=== PATIENT | female | born 2000 | race African-American/Black ===

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

== ENCOUNTER 2019-02-19 16:18 | Emergency (ER) | payer MEDICAID, OTHER ==
[~2019-02-19] VITALS: Ht 165.1 cm; Wt 81.8 kg
[2019-02-19 17:48] LABS: BASOPHILS % (AUTO) 0.4 % (0-1); EOSINOPHILS # (AUTO) 0.2 X10'3 (0-0.9); EOSINOPHILS % (AUTO) 2.2 % (0-6); HEMOGLOBIN 11.5 g/dl (12.0-16.0); LYMPHOCYTES # (AUTO) 2.1 X10'3 (1.1-4.8); LYMPHOCYTES % (AUTO) 25.8 % (21-51); MEAN CORPUSCULAR HEMOGLOBIN 28.7 PG (27.0-31.0); MEAN CORPUSCULAR HGB CONC 32.9 g/dL (33.0-36.5); MEAN CORPUSCULAR VOLUME 87.3 FL (78-98); MEAN PLATELET VOLUME 6.8 FL (7.4-10.4); MONOCYTES # (AUTO) 0.5 X10'3 (0-0.9); MONOCYTES % (AUTO) 6.5 % (2-12); NEUTROPHILS # (AUTO) 5.3 X10'3 (1.8-7.7); NEUTROPHILS % (AUTO) 65.1 % (42-75); PLATELET COUNT 408 X10'3 (140-440); RED BLOOD COUNT 4.01 X10'6 (4.20-5.60); RED CELL DISTRIBUTION WIDTH 13.7 % (11.5-14.5); WHITE BLOOD COUNT 8.1 X10'3 (4.5-11.0)
[2019-02-19 18:11] LABS: ALANINE AMINOTRANSFERASE 16 U/L (12-78); ALBUMIN 3.8 G/DL (3.4-5.0); ALBUMIN/GLOBULIN RATIO 0.9 (1.1-1.5); ALKALINE PHOSPHATASE 79 IU/L (20-180); ANION GAP 9 (8-16); ASPARTATE AMINO TRANSFERASE 11 U/L (10-37); BILIRUBIN,TOTAL 0.3 MG/DL (0.1-1.0); BLOOD UREA NITROGEN 10 MG/DL (7-18); BUN/CREATININE RATIO 12.2 (6.6-38.0); CALCIUM 8.8 MG/DL (8.5-10.1); CHLORIDE 107 MMOL/L (99-107); CREATININE 0.82 MG/DL (0.40-0.90); GLUCOSE 68 MG/DL (70-104); POTASSIUM 3.7 MMOL/L (3.5-5.1); SODIUM 141 MMOL/L (135-145); TOTAL CARBON DIOXIDE 24.6 MMOL/L (24-32); eGFR > 90 ML/MIN
[2019-02-19 18:16] VITALS: BP 115/58
== END 2019-02-19 18:40 | disposition home or self-care (01) ==
LOC: ER 16:19
DX: R42 Dizziness and giddiness (principal); R07.89 Other chest pain; R00.2 Palpitations; G43.909 Migraine, unspecified, not intractable, without status migrainosus; J45.909 Unspecified asthma, uncomplicated; Z88.0 Allergy status to penicillin; Z88.1 Allergy status to other antibiotic agents
CPT/HCPCS: 36415; 80053; 82948; 85025; 93005; 99284

== ENCOUNTER 2019-03-09 14:41 | Emergency (ER) | payer MEDICAID, OTHER ==
[~2019-03-09] VITALS: Ht 165.1 cm; Wt 80.0 kg
[2019-03-09 15:00] VITALS: BP 126/61
[2019-03-09] MEDS ORDERED: NAPR-56 PO (15:44)
== END 2019-03-09 15:55 | disposition home or self-care (01) ==
LOC: ER 14:41
DX: M79.672 Pain in left foot (principal); G43.909 Migraine, unspecified, not intractable, without status migrainosus; J45.909 Unspecified asthma, uncomplicated; F10.99 Alcohol use, unspecified with unspecified alcohol-induced disorder; Z86.2 Personal history of diseases of the blood and blood-forming organs and certain disorders involving the immune mechanism; Z88.0 Allergy status to penicillin; Z88.1 Allergy status to other antibiotic agents; Z79.899 Other long term (current) drug therapy; Y90.9 Presence of alcohol in blood, level not specified
CPT/HCPCS: 73610; 73630; 99283

== ENCOUNTER 2019-03-16 16:16 | Emergency (ER) | payer MEDICAID, OTHER ==
[~2019-03-16] VITALS: Ht 165.1 cm; Wt 84.1 kg
[~2019-03-16 16:16] MED LIST changes: +NAPR-56 PO
[2019-03-16 16:38] VITALS: BP 126/75
--- NOTE | 2019-03-16 17:35 | NUR ---
PT GIVEN A WORK NOTE AND TOLD TO REST HER FOOT AND MAY F/U WITH UTILITY DRIVER.
== END 2019-03-16 17:43 | disposition home or self-care (01) ==
LOC: ER 16:16
DX: M79.672 Pain in left foot (principal); G43.909 Migraine, unspecified, not intractable, without status migrainosus; J45.909 Unspecified asthma, uncomplicated; D64.9 Anemia, unspecified; Z88.0 Allergy status to penicillin; Z88.1 Allergy status to other antibiotic agents; Z79.2 Long term (current) use of antibiotics; Z79.899 Other long term (current) drug therapy
CPT/HCPCS: 73630; 99283

== ENCOUNTER 2019-03-25 19:28 | Emergency (ER) | payer MEDICAID, OTHER ==
[~2019-03-25] VITALS: Ht 165.1 cm; Wt 83.6 kg
[2019-03-25 19:40] VITALS: BP 123/82
[2019-03-25] MEDS ORDERED: LIDOcaine 5% patch TP STA (21:18)
[2019-03-25] MEDS ORDERED: ketorolac tromethamine 15mg/ml inj. IM ONE (21:20)
== END 2019-03-25 21:47 | disposition home or self-care (01) ==
LOC: ER 19:28
DX: S86.812A Strain of other muscle(s) and tendon(s) at lower leg level, left leg, initial encounter (principal); S46.811A Strain of other muscles, fascia and tendons at shoulder and upper arm level, right arm, initial encounter; S00.83XA Contusion of other part of head, initial encounter; G43.909 Migraine, unspecified, not intractable, without status migrainosus; J45.909 Unspecified asthma, uncomplicated; Z88.0 Allergy status to penicillin; Z88.1 Allergy status to other antibiotic agents; Z79.2 Long term (current) use of antibiotics; Z79.899 Other long term (current) drug therapy; V43.62XA Car passenger injured in collision with other type car in traffic accident, initial encounter; Y93.89 Activity, other specified; Y92.488 Other paved roadways as the place of occurrence of the external cause; Y99.8 Other external cause status
CPT/HCPCS: 96372; 99283; J1885

== ENCOUNTER 2019-11-24 12:29 | Emergency (ER) | payer MEDICAID ==
[~2019-11-24] VITALS: Ht 165.1 cm; Wt 89.0 kg
[~2019-11-24 12:29] MED LIST changes: -NAPR-56 PO
[2019-11-24] MEDS ORDERED: ALBU18HF2 INH (14:34)
[2019-11-24 14:46] VITALS: BP 114/87
== END 2019-11-24 14:44 | disposition home or self-care (01) ==
LOC: ER 12:30
DX: T78.40XA Allergy, unspecified, initial encounter (principal); G43.909 Migraine, unspecified, not intractable, without status migrainosus; J45.909 Unspecified asthma, uncomplicated; F17.200 Nicotine dependence, unspecified, uncomplicated; Z76.0 Encounter for issue of repeat prescription; Z86.2 Personal history of diseases of the blood and blood-forming organs and certain disorders involving the immune mechanism; Z72.89 Other problems related to lifestyle; Z88.0 Allergy status to penicillin; Z88.1 Allergy status to other antibiotic agents; Z79.899 Other long term (current) drug therapy; X58.XXXA Exposure to other specified factors, initial encounter
CPT/HCPCS: 99283

== ENCOUNTER 2020-01-18 17:39 | Emergency (ER) | payer MEDICAID ==
[~2020-01-18] VITALS: Ht 165.1 cm; Wt 84.1 kg
[~2020-01-18 17:39] MED LIST changes: +ALBU18HF2 INH
[2020-01-18 18:00] VITALS: BP 137/94
[2020-01-18] MEDS ORDERED: ketorolac tromethamine 15mg/ml inj. IM ONE (19:40)
== END 2020-01-18 20:09 | disposition home or self-care (01) ==
LOC: ER 17:40
DX: S16.1XXA Strain of muscle, fascia and tendon at neck level, initial encounter (principal); J45.909 Unspecified asthma, uncomplicated; Z88.0 Allergy status to penicillin; Z88.1 Allergy status to other antibiotic agents; Z79.2 Long term (current) use of antibiotics; Z79.899 Other long term (current) drug therapy; V87.8XXA Person injured in other specified noncollision transport accidents involving motor vehicle (traffic), initial encounter; Y93.89 Activity, other specified; Y92.410 Unspecified street and highway as the place of occurrence of the external cause; Y99.8 Other external cause status
CPT/HCPCS: 72125; 96372; 99284; J1885

== ENCOUNTER 2020-11-10 12:55 | Emergency (ER) | payer MEDICAID ==
[~2020-11-10] VITALS: Ht 165.1 cm; Wt 92.4 kg
[2020-11-10 13:03] VITALS: BP 129/69
[2020-11-10 16:42] LABS: CLARITY,URINE CLOUDY (Clear); COLOR,URINE YELLOW (Yellow); GLUCOSE, URINE NEGATIVE (Neg); KETONES,URINE TRACE mg/dl (Neg); LEUKOCYTE ESTERASE ,URINE NEGATIVE (Neg); NITRITES, URINE POSITIVE (Neg); OCCULT BLOOD,URINE SMALL (Neg); PREOP URINE HCG NEGATIVE (NEGATIVE); PROTEIN,URINE NEGATIVE (Neg); UROBILINOGEN,URINE 0.2 E.U/dL (0.2-1.0)
[2020-11-10 16:43] LABS: UA COLLECTION TYPE CLN CATCH MIDSTREAM
[2020-11-10 16:47] LABS: BACTERIA,URINE 4+ /HPF (Neg); MUCUS STRANDS NONE SEEN /LPF (Neg); SQUAMOUS EPITHELIAL CELL,UR MODERATE /LPF (FEW)
[2020-11-10] MEDS ORDERED: CEPH-585 PO (17:04)
== END 2020-11-10 17:11 | disposition home or self-care (01) ==
LOC: ER 12:55
DX: N83.202 Unspecified ovarian cyst, left side (principal); R10.2 Pelvic and perineal pain; N39.0 Urinary tract infection, site not specified; G43.909 Migraine, unspecified, not intractable, without status migrainosus; J45.909 Unspecified asthma, uncomplicated; Z86.2 Personal history of diseases of the blood and blood-forming organs and certain disorders involving the immune mechanism; Z72.89 Other problems related to lifestyle; Z88.0 Allergy status to penicillin; Z88.1 Allergy status to other antibiotic agents; Z79.2 Long term (current) use of antibiotics; Z79.899 Other long term (current) drug therapy
CPT/HCPCS: 76856; 81001; 81025; 93976; 99284

== ENCOUNTER 2021-01-02 14:37 | Emergency (ER) | payer MEDICAID ==
[~2021-01-02] VITALS: Ht 165.1 cm; Wt 81.0 kg
[~2021-01-02 14:37] MED LIST changes: +CEPH-585 PO
[2021-01-02 14:42] VITALS: BP 119/72
== END 2021-01-02 15:49 | disposition home or self-care (01) ==
LOC: ER 14:37
DX: M79.675 Pain in left toe(s) (principal); R26.9 Unspecified abnormalities of gait and mobility; G43.909 Migraine, unspecified, not intractable, without status migrainosus; J45.909 Unspecified asthma, uncomplicated; F12.90 Cannabis use, unspecified, uncomplicated; Z86.2 Personal history of diseases of the blood and blood-forming organs and certain disorders involving the immune mechanism; Z87.81 Personal history of (healed) traumatic fracture; Z72.89 Other problems related to lifestyle; Z88.0 Allergy status to penicillin; Z88.1 Allergy status to other antibiotic agents; Z79.2 Long term (current) use of antibiotics; Z79.899 Other long term (current) drug therapy
CPT/HCPCS: 73630; 99283

== ENCOUNTER 2023-04-09 13:07 | Emergency (ER) | payer MEDICAID ==
[~2023-04-09] VITALS: Ht 165.1 cm; Wt 105.0 kg
[~2023-04-09 13:07] MED LIST changes: -CEPH-585 PO
[2023-04-09 13:31] VITALS: RESP 18
[2023-04-09 17:12] VITALS: BP 129/81; PULSE 77; TEMP 97.5; O2SAT 100
== END 2023-04-09 22:17 | disposition left against medical advice (07) ==
LOC: ER 13:08
DX: R51.9 Headache, unspecified (principal); Z53.21 Procedure and treatment not carried out due to patient leaving prior to being seen by health care provider
CPT/HCPCS: 99281

== ENCOUNTER 2023-07-01 05:48 | Outpatient (CLI) | payer MEDICAID ==
[2023-07-01] VITALS (20 sets, daily range): BP systolic 102–131; BP diastolic 55–95; PULSE 65–111
== END 2023-07-01 23:59 | disposition home or self-care (01) ==
LOC: CARD DIAG 05:48
PROVIDERS: ATTEND Internal Medicine Interventional Cardiology
DX: R00.0 Tachycardia, unspecified (principal); R00.2 Palpitations; R06.02 Shortness of breath; R07.89 Other chest pain
CPT/HCPCS: 93660

== ENCOUNTER 2024-02-01 20:23 | Emergency (ER) | payer OTHER, MEDICAID ==
[~2024-02-01] VITALS: Ht 165.1 cm; Wt 98.1 kg
[~2024-02-01 20:23] MED LIST changes: +ONDA-243 PO; -ONDA4TAB12 PO
[2024-02-01 21:41] VITALS: BP 130/82; PULSE 75; RESP 16; TEMP 98; O2SAT 100
[2024-02-01 21:47] LABS: HIV ANTIBODY 1&2 RAPID NON-REACTIVE (Neg)
== END 2024-02-01 21:42 | disposition home or self-care (01) ==
LOC: ER 20:23
DX: Z77.21 Contact with and (suspected) exposure to potentially hazardous body fluids (principal); R04.0 Epistaxis; G43.909 Migraine, unspecified, not intractable, without status migrainosus; J45.909 Unspecified asthma, uncomplicated; F31.9 Bipolar disorder, unspecified; F12.90 Cannabis use, unspecified, uncomplicated; Z88.0 Allergy status to penicillin; Z88.1 Allergy status to other antibiotic agents; Z79.899 Other long term (current) drug therapy; Z79.2 Long term (current) use of antibiotics
CPT/HCPCS: 36415; 86703; 86704; 86705; 86708; 86803; 87522; 99283

== ENCOUNTER 2024-09-24 18:45 | Emergency (ER) | payer MEDICAID, OTHER ==
[~2024-09-24] VITALS: Ht 165.1 cm; Wt 92.2 kg
[2024-09-24 18:56] VITALS: BP 117/76; PULSE 68; RESP 16; O2SAT 100
[2024-09-24 20:30] VITALS: TEMP 98.1
== END 2024-09-24 20:38 | disposition home or self-care (01) ==
LOC: ER 18:46
DX: S00.83XA Contusion of other part of head, initial encounter (principal); J45.909 Unspecified asthma, uncomplicated; F12.90 Cannabis use, unspecified, uncomplicated; G43.909 Migraine, unspecified, not intractable, without status migrainosus; D64.9 Anemia, unspecified; F31.9 Bipolar disorder, unspecified; Z88.0 Allergy status to penicillin; Z88.1 Allergy status to other antibiotic agents; Z79.899 Other long term (current) drug therapy; Z72.89 Other problems related to lifestyle; W22.8XXA Striking against or struck by other objects, initial encounter; Y93.89 Activity, other specified; Y92.89 Other specified places as the place of occurrence of the external cause; Y99.8 Other external cause status
CPT/HCPCS: 70140; 99283

== ENCOUNTER 2024-10-13 15:46 | Emergency (ER) | payer MEDICAID, OTHER ==
[~2024-10-13] VITALS: Ht 165.1 cm; Wt 91.3 kg
[2024-10-13] MEDS ORDERED: SULF1TAB49 PO (17:28)
[2024-10-13] MEDS ORDERED: METR-159 PO (17:28)
[2024-10-13] MEDS: sulfamethoxazole/trimethoprim DS (800/160mg) tablet PO ONE (17:37)
[2024-10-13] MEDS: metroNIDAZOLE 500mg tablet PO ONE (17:37)
[2024-10-13] MEDS: TETanus/Pertussis (Acell)/Diphther VAC/PF (Tdap-Adult) 0.5ml syringe IMVAC ONE (17:39)
[2024-10-13 18:19] VITALS: BP 120/86; PULSE 61; RESP 16; TEMP 89.7; O2SAT 99
== END 2024-10-13 18:22 | disposition home or self-care (01) ==
LOC: ER 15:47
DX: S81.851A Open bite, right lower leg, initial encounter (principal); J45.909 Unspecified asthma, uncomplicated; Z88.1 Allergy status to other antibiotic agents; Z88.0 Allergy status to penicillin; W50.3XXA Accidental bite by another person, initial encounter; Y93.89 Activity, other specified; Y92.89 Other specified places as the place of occurrence of the external cause; Y99.8 Other external cause status
CPT/HCPCS: 90471; 90715; 99283; A6212